=== PATIENT | female | born 1935 | race Caucasian/White ===

== ENCOUNTER 2017-04-29 09:46 | Emergency (ER) | payer BC, MEDICARE ==
[~2017-04-29] VITALS: Ht 170.2 cm; Wt 70.0 kg
[~2017-04-29 09:46] MED LIST: ASPIRIN 81M81 MG/TA2 PO; AZOR 5 MG-40 MG1 TAB PO; COLACE 100100 MG/CAP PO; CORDARONE200 MG/TAB PO; COUMADIN 3MG3 MG/TAB PO; GAS FREE EXTRA125 MG PO; HCTZ 25MG TAB25 MG PO; LIPITOR 40MG TA40 MG PO; LUTEIN20 MG PO; MIRALAX PA17 GM/Dose PO; PREMARIN0.45 MG PO; PROAMATINE2.5 MG PO; TYLENOL ARTHRI650 M1 PO; VITAMIN D31000 I1 PO
[2017-04-29 10:38] LABS: BASO # 0.1 (0.0-0.2); BASO % 0.6 % (0.0-2.0); EOS # 0.3 (0.0-0.7); EOS % 2.2 % (0-4.0); GRAN # 10.6 (1.4-6.5); HEMATOCRIT 41.9 % (37.0-47.0); HEMOGLOBIN 14.1 g/dl (12.5-16.0); LYMPH # 1.5 (1.2-3.4); LYMPH % 11.1 % (20.0-51.0); MEAN CELL VOLUME 84 fl (80.0-100.0); MEAN CORPUSCULAR HEMOGLOBIN 28 pg (27.0-31.0); MEAN CORPUSCULAR HGB CONC 34 g/dl (33.0-37.0); MEAN PLATELET VOLUME 9.5 fl (7.4-10.4); MONO # 0.9 (0.1-0.6); MONO % 6.7 % (1.7-9.3); PLATELET COUNT 254 K/mm3 (130-400); RED BLOOD COUNT 4.99 M/mm3 (4.10-5.30); REDCELL DISTRIBUTION WIDTH-CV 14.2 % (11.5-14.5)
[2017-04-29 10:44] LABS: INR 2.9 (0.8-3.0); PROTHROMBIN TIME 34.2 SECONDS (9.7-12.8)
[2017-04-29 10:56] LABS: ALBUMIN 4.3 gm/dL (3.5-5.0); BILIRUBIN,TOTAL 0.7 mg/dL (0.0-1.0); CALCIUM 9.1 mg/dL (8.4-10.2); CREATININE, serum 0.88 mg/dL (0.52-1.25); POTASSIUM 4.2 mmol/L (3.4-5.0); TOTAL PROTEIN 7.2 gm/dL (6.4-8.2)
[2017-04-29 12:10] VITALS: BP 144/85; PULSE 97
== END 2017-04-29 12:16 | disposition home or self-care (01) ==
LOC: COL.ER 09:46
PROVIDERS: Emergency Medicine
DX: R04.0 Epistaxis (principal); I10 Essential (primary) hypertension; I48.91 Unspecified atrial fibrillation; Z95.2 Presence of prosthetic heart valve; Z79.01 Long term (current) use of anticoagulants; Z79.82 Long term (current) use of aspirin

== ENCOUNTER → 2017-10-15 | Outpatient (CLI) | payer BC, MEDICARE | LOC: COL.VAS 12:50 | DX: R06.02 Shortness of breath (principal); Z95.2 Presence of prosthetic heart valve ==

== ENCOUNTER 2021-08-21 11:09 | Inpatient (IN) | payer MEDICARE, BC ==
[~2021-08-21] VITALS: Ht 167.6 cm; Wt 72.6 kg
[2021-08-21 11:45] LABS: HEMATOCRIT 42.5 % (37.0-47.0); HEMOGLOBIN 14.1 g/dl (12.5-16.0); MEAN CELL VOLUME 81 fl (80.0-100.0); MEAN CORPUSCULAR HEMOGLOBIN 27 pg (27-31); MEAN CORPUSCULAR HGB CONC 33 g/dl (33.0-37.0); PLATELET COUNT 366 K/mm3 (130-400); RED BLOOD COUNT 5.23 M/mm3 (4.10-5.30); REDCELL DISTRIBUTION WIDTH-CV 14.6 % (11.5-14.5)
[2021-08-21 12:02] LABS: BAND 2 % (0-10); LYMPHOCYTE 6 % (20.0-51.0); NEUTROPHILS 83 % (42.0-75.2); PLATELET ESTIMATE NORMAL (NORMAL)
[2021-08-21 12:03] LABS: ALBUMIN 3.1 gm/dL (3.4-4.8); BILIRUBIN,TOTAL 0.8 mg/dL (0.2-1.2); CALCIUM 9.3 mg/dL (8.4-10.2); CREATININE, serum 0.89 mg/dL (0.57-1.11); POTASSIUM 3.3 mmol/L (3.5-4.5); TOTAL PROTEIN 7.2 gm/dL (6.2-8.1)
[2021-08-21 13:31] LABS: COLLECTION METHOD CLEAN CATCH
[2021-08-21 13:39] LABS: MUCOUS Present (NOT PRESENT); PH 5 (5-8); SQUAMOUS EPITHELIAL 20-50 /hpf (0-10); URINE APPEARANCE Cloudy (CLEAR/HAZY); URINE BACTERIA Rare /hpf (NONE SEEN); URINE BILIRUBIN Negative (NEGATIVE); URINE BLOOD 1+ (NEGATIVE); URINE COLOR Amber (YELLOW); URINE GLUCOSE Negative (NEGATIVE); URINE KETONE Trace (NEGATIVE); URINE LEUKOCYTE ESTERASE 3+ (NEGATIVE); URINE NITRATE Negative (NEGATIVE); URINE PROTEIN(semi-quant) 2+ (NEGATIVE); URINE RBC 20-50 /hpf (0-2)
[2021-08-21] MEDS ORDERED: XARELTO20 MG PO (15:22)
[2021-08-21] MEDS ORDERED: NORVASC 5MG5 MG/TAB PO (15:23)
[2021-08-21] MEDS ORDERED: COREG12.5 MG (15:23)
[2021-08-21] MEDS ORDERED: FIBER GUMMIES2.5 GM PO (15:24)
[2021-08-21] MEDS ORDERED: DIAMOX125 MG (15:26)
[2021-08-21 15:40] LABS: COLLECTION METHOD CATHETER
[2021-08-21 15:47] LABS: MUCOUS Present (NOT PRESENT); PH 6 (5-8); URINE APPEARANCE Cloudy (CLEAR/HAZY); URINE BACTERIA None Seen /hpf (NONE SEEN); URINE BILIRUBIN Negative (NEGATIVE); URINE BLOOD 1+ (NEGATIVE); URINE COLOR Yellow (YELLOW); URINE GLUCOSE Negative (NEGATIVE); URINE KETONE Trace (NEGATIVE); URINE LEUKOCYTE ESTERASE 2+ (NEGATIVE); URINE NITRATE Negative (NEGATIVE); URINE PROTEIN(semi-quant) 1+ (NEGATIVE); URINE UROBILINOGEN Negative (NEGATIVE)
[2021-08-21 16:33] VITALS: BP 156/50; PULSE 57; TEMP 98.3
--- NOTE | 2021-08-21 18:29 | NUR ---
PT LAYING SUPINE IN BED ON ROOM AIR. PT STATES SHE IS NOT HAVING ANY SOB BUT DOES HAVE A NONPRODUCTIVE COUGH. PT STATES SHE IS COLD. WARM BLANKET WAS GOTTEN FOR HER. NO OTHER NEEDS WERE VOICED AT THIS TIME. CALL LIGHT IS WITHIN REACH.
[2021-08-21 19:42] VITALS: BP 152/94; PULSE 72; TEMP 100.8
[2021-08-21 23:28] VITALS: BP 125/49; PULSE 60; TEMP 98.6
[2021-08-22] VITALS (8 sets, daily range): BP systolic 126–154; BP diastolic 47–99; PULSE 52–77; TEMP 98–103.2
--- NOTE | 2021-08-22 06:30 | NUR ---
ASSESSMENT COMPLETE FOR THIS SHIFT. PT RESTING IN BED MOANING. PT COMPLAINED OF BODY ACHES AND PT ALSO HAD A LOW GRADE FEVER A COUPLE OF TIMES TONIGHT. PT GIVEN TYLENOL FOR FEVER AND ACHES. PT FELT TYLENOL WAS HELPFUL BOTH TIMES. PT ALSO HAD A NON-PRODUCTIVE COUGH. PT DENIED PALPITATIONS, N,V,D OR DIZZINESS. PT EXPRESSED NO OTHER NEEDS AT THIS TIME. CALL LIGHT WITHIN REACH.
--- NOTE | 2021-08-22 09:03 | NUR ---
Scheduled medications given. Shift assessment preformed. Patient currently requiring 2L of O2 at night. RA during day. IV fluids running as ordered. VSS. Patient A&O. Patient denies any pain, discomfort, SOA, or further needs at this time. Dry, non productive cought noted. Call light in reach. Fall precuations in place.
[2021-08-22 09:51] LABS: BASO # 0.1 K/mm3 (0.0-0.2); BASO % 0.5 % (0.0-2.0); EOS # 0.1 K/mm3 (0.0-0.7); EOS % 0.7 % (0.0-4.0); GRAN # 10.4 K/mm3 (1.4-6.5); GRAN % 84.5 % (42.2-75.2); HEMATOCRIT 37.1 % (37.0-47.0); HEMOGLOBIN 12.7 g/dl (12.5-16.0); LYMPH # 0.9 K/mm3 (1.2-3.4); LYMPH % 7.2 % (20.0-51.0); MEAN CELL VOLUME 80 fl (80.0-100.0); MEAN CORPUSCULAR HEMOGLOBIN 27 pg (27-31); MEAN CORPUSCULAR HGB CONC 34 g/dl (33.0-37.0); MEAN PLATELET VOLUME 8.7 fl (7.4-10.4); MONO # 0.8 K/mm3 (0.1-0.6); MONO % 6.4 % (1.7-9.3); PLATELET COUNT 360 K/mm3 (130-400); RED BLOOD COUNT 4.66 M/mm3 (4.10-5.30); REDCELL DISTRIBUTION WIDTH-CV 14.8 % (11.5-14.5)
[2021-08-22 10:07] LABS: CALCIUM 8.5 mg/dL (8.4-10.2); CREATININE, serum 0.73 mg/dL (0.57-1.11)
[2021-08-22 10:12] LABS: POTASSIUM 2.8 mmol/L (3.5-4.5)
--- NOTE | 2021-08-22 10:36 | NUR ---
Critical potassium reported to Jean Marie who repeated back the results.
--- NOTE | 2021-08-22 12:37 | NUR ---
SW met with the patient to discuss discharge plan. The patient lives in [place] with her , Tio (ph#[phone]). She reports independence with ADLs and has a cane, walker, and electric scooter. She has a CPAP and an oxygen concentrator that hooks up to the CPAP from [facility]. She states that the concentrator is not working, but that she has notified [facility] of this. She states that the equipment is back ordered at this time. The patient's PCP is Dr. Sunil Rod, but she states that she plans on switching to a new PCP and is working on this. She receives her medications from [facility]. The patient does not have a DPOA-HC in EMR, but she states that she does have one competed and believes she designated her daughter, Kendra (ph#[phone]). The patient plans on returning home with her upon discharge. OT is recommending home health. SW discussed this with the patient. The patient states that she would like to get home health set up and would want [facility]. ARJUN contacted and faxed a referral to Ines at [facility]. SW contacted the patient's , Tio, and reviewed the above with him. Tio is in agreement to the plan. ARJUN contacted Gloria at [facility] to inquire if they have a copy of the patient's DPOA-HC. Gloria reports that they do and she will fax it to the medical unit. *Discharge plan: home with and home health*
--- NOTE | 2021-08-22 13:58 | NUR ---
SW received the patient's DPOA-HC, via fax. SW placed the document in the patient's chart. The patient's DPOA-HC is her daughter, Kendra. The alternate is her .
--- NOTE | 2021-08-22 15:16 | NUR ---
PCT INFORMED THIS RN THAT PATIENT HAD A TEMP OF 103.2. PRN TYLENOL GIVEN. ICE PACKS PLACE ON PATIENT'S CORE. TJ TEMPLE NOTIFIED. WILL CONTINUE TO MONITOR.
--- NOTE | 2021-08-22 15:35 | NUR ---
Erich, at [facility], reports that they are able to accept the patient for services.
--- NOTE | 2021-08-22 19:06 | NUR ---
Last temp check came back 98.4 axillary. VSS. Patient A&O. Patient denies any pain, discomfort, SOA, or further needs at this time. Call light in reach.
[2021-08-23] VITALS (7 sets, daily range): BP systolic 124–151; BP diastolic 45–73; PULSE 67–78; TEMP 98–99.3
--- NOTE | 2021-08-23 00:30 | NUR ---
PT REFUSED MIDNIGHT BLADDER SCAN. PT STATES SHE WOULD REALLY LIKE TO JUST GET SOME REST.
--- NOTE | 2021-08-23 05:56 | NUR ---
ASSESSMENT COMPLETE FOR THIS SHIFT. PT RESTING IN BED NAPPING. PT DENIED PAIN, PALPITATIONS, SOB, N,V,D, OR DIZZINESS. PT HAD SOME ISSUES WITH TAKING HER POTASSIUM. PT FELT THE DRINK WAS HARD ON HER STOMACH. THE IV ROUTE WAS NOT PROMISING BECAUSE THE ABX'S SHE WAS TAKING HURT HER VEINS AND THE PILL FORM, SHE WAS ONLY ABLE TO GET HALF A PILL DOWN, BECAUSE IT MADE HER GAG, COUGH AND CHOKE SO BAD, SHE WAS IN TEARS. I TOLD HER, WE WOULD CHECK HER POTASSIUM LEVELS IN THE MORNING, BUT SHE MAY HAVE TO PICK THE LESSER OF THREE EVILS. PT STATED SHE UNDERSTOOD, BUT MADE NO PROMISES. PT'S FELT HER URINE OUTPUT WAS BETTER TONIGHT. WE WERE ABLE TO MEASURE ABOUT 325ML, WITH TWO OF HER TRIPS TO THE RESTROOM RESULTING IN HER URINE OUTPUT NOT BEING ABLE TO BE MEASURED BECAUSE THEY MISSED THE HAT. PT'S URINE WAS YELLOW AND CLEAR. PT REFUSED HER MIDNIGHT AND 0600HRS BLADDER SCANS IN FAVOR OF GETTING MORE REST. HER 2100HRS AND 0300HRS BLADDER SCANS RESULTED IN 89ML AND 158ML RESPECTIVELY. WILL CONTINUE TO MONITOR. PT'S HIGHEST TEMP TONIGHT WAS 99.3. PT EXPRESSED NO OTHER NEEDS AT THIS TIME. CALL LIGHT WITHIN REACH.
[2021-08-23 06:48] LABS: BASO # 0.1 K/mm3 (0.0-0.2); BASO % 0.5 % (0.0-2.0); EOS # 0.2 K/mm3 (0.0-0.7); GRAN # 8.1 K/mm3 (1.4-6.5); GRAN % 73.1 % (42.2-75.2); HEMOGLOBIN 12.2 g/dl (12.5-16.0); LYMPH # 1.2 K/mm3 (1.2-3.4); LYMPH % 10.5 % (20.0-51.0); MEAN CELL VOLUME 79 fl (80.0-100.0); MEAN CORPUSCULAR HEMOGLOBIN 27 pg (27-31); MEAN CORPUSCULAR HGB CONC 34 g/dl (33.0-37.0); MEAN PLATELET VOLUME 8.9 fl (7.4-10.4); MONO # 1.5 K/mm3 (0.1-0.6); MONO % 13.2 % (1.7-9.3); PLATELET COUNT 380 K/mm3 (130-400); RED BLOOD COUNT 4.54 M/mm3 (4.10-5.30); REDCELL DISTRIBUTION WIDTH-CV 14.8 % (11.5-14.5)
[2021-08-23 07:03] LABS: ALBUMIN 2.2 gm/dL (3.4-4.8); BILIRUBIN,TOTAL 0.5 mg/dL (0.2-1.2); CALCIUM 8.5 mg/dL (8.4-10.2); CREATININE, serum 0.63 mg/dL (0.57-1.11); POTASSIUM 3.3 mmol/L (3.5-4.5); TOTAL PROTEIN 5.6 gm/dL (6.2-8.1)
--- NOTE | 2021-08-23 08:42 | NUR ---
PATIENT ALERT AND ORIENTED X3. NO NEW CONCERNS. PATIENT SAYS SHES FEELING BETTER TODAY.
--- NOTE | 2021-08-23 11:45 | NUR ---
Initial visit; Patient and her family thanked [employer] for looking in on Anuja and visiting about mutual friends. Anuja is feeling better and is very thankful. [employer] wished her continued healing and God's blessings.
[2021-08-24 03:03] VITALS: BP 140/75; PULSE 91; TEMP 98.2
--- NOTE | 2021-08-24 05:53 | NUR ---
ASSESSMENT COMPLETE FOR THIS SHIFT. PT SITTING UP IN BED DRINKING SOME WATER. PT DENIED PAIN, PALPITATIONS, N,V,D OR DIZZINESS. PT CONTINUES TO HAVE SOME SOB WITH AMBULATION. PT'S URINE OUTPUT WAS MUCH BETTER TONIGHT. PT'S OUTPUT FOR THIS SHIFT WAS 1750ML. TWO BLADDER SCANS THIS SHIFT SHOWED LESS THAN 350ML. PT REFUSED THE MIDNIGHT AND THE 0630 SCAN COMING UP, IN FAVOR OF GETTING MORE SLEEP. PT EXPRESSED NO OTHER NEEDS AT THIS TIME. CALL LIGHT WITHIN REACH.
[2021-08-24 07:21] VITALS: BP 175/64; PULSE 67; TEMP 98.1
--- NOTE | 2021-08-24 09:09 | NUR ---
PATIENT ALERT AND ORIENTED X3. FEELING BETTER TODAY. HAVING BETTER OUTPUT YESTERDAY AND TODAY. BLADDER SCANS Q6H. NO NEW CONCERNS. TOLERATING IV ANTIBIOTICS WELL.
[2021-08-24 11:29] VITALS: BP 143/55; PULSE 66; TEMP 98.1
[2021-08-24 15:38] VITALS: BP 150/55; PULSE 67; TEMP 98.3
[2021-08-24 15:55] LABS: BASO # 0.1 K/mm3 (0.0-0.2); BASO % 0.9 % (0.0-2.0); EOS # 0.6 K/mm3 (0.0-0.7); EOS % 5.6 % (0.0-4.0); GRAN # 6.8 K/mm3 (1.4-6.5); HEMATOCRIT 41.7 % (37.0-47.0); LYMPH # 1.4 K/mm3 (1.2-3.4); LYMPH % 13.8 % (20.0-51.0); MEAN CELL VOLUME 80 fl (80.0-100.0); MEAN CORPUSCULAR HEMOGLOBIN 27 pg (27-31); MEAN CORPUSCULAR HGB CONC 34 g/dl (33.0-37.0); MEAN PLATELET VOLUME 8.7 fl (7.4-10.4); MONO # 1.4 K/mm3 (0.1-0.6); MONO % 13.1 % (1.7-9.3); PLATELET COUNT 466 K/mm3 (130-400); RED BLOOD COUNT 5.19 M/mm3 (4.10-5.30)
[2021-08-24 16:09] LABS: CALCIUM 8.9 mg/dL (8.4-10.2); CREATININE, serum 0.8 mg/dL (0.57-1.11); POTASSIUM 3.8 mmol/L (3.5-4.5)
--- NOTE | 2021-08-24 19:32 | NUR ---
PATIENT RELAXING WATHCING TV AT THIS TIME CONTINUES WITH IV ABX THERPAY FOR PNEUMONIA/UTI. ENCOURAGING FLUIDS THROUGHOUT SHIFT. NO COUGH NOTED AT THIS TIME EDUATED PATIENT ON TESSALON KIRSTIE MEDICATION. WILL CONTINUE TO ENCOURAGE AMBULATIONG AND DEEP BREATHING EXERCISES WHILE AWAKE. PENDING RESPIRATORY SWAB PANEL. REMAINS ON DROPTLET PRECAUTIONS.
[2021-08-24 20:25] VITALS: BP 128/66; PULSE 93; TEMP 98.6
[2021-08-25] VITALS: BP 132/59; PULSE 82; TEMP 98.2
[2021-08-25 03:42] VITALS: BP 168/57; PULSE 71; TEMP 97.7
--- NOTE | 2021-08-25 06:52 | NUR ---
PATIENT HAVING CONTINOUS COUGH THROUGHOUT THE NIGHT AND VOIDING LARGE AMOUNT OF URINE ON SHIFT. REMAINS ON ABX THERAPY ON 02@ 2L VIA NC PATIENT DOES HAVING C-PAP AT HOME ENCOURAGED PATIENT TO ASKED FAMILY TO BRING IN, SO WE CAN CONTINUE WITH CARE. PATIENT DOES GET LIGHT HEADED WITH AMBULATION SOMETIMES AND SLIGHTLY SOB BUT RECOVERS VERY WELL WIHT RELAXATION.
[2021-08-25 07:39] VITALS: BP 165/65; PULSE 72; TEMP 97.9
--- NOTE | 2021-08-25 07:52 | NUR ---
Assessment completed, alert/oriented, vital signs stable, denies pain, she reports coughing all night long and that the Lupe.pearls did not help at all/ I will discuss POC with physician, lungs diminished but CTA, no resp.difficulty at rest, continue IV Abx, heart RRR/distal pulses are palpable, she is eating breakfast and denies needs
[2021-08-25 11:38] VITALS: BP 147/61; PULSE 73; TEMP 98.1
[2021-08-25 15:29] VITALS: BP 146/50; PULSE 80; TEMP 98
[2021-08-25 19:54] VITALS: BP 177/67; PULSE 105; TEMP 97.4
[2021-08-26] VITALS (7 sets, daily range): BP systolic 146–164; BP diastolic 57–77; PULSE 71–87; TEMP 97.3–98.3
--- NOTE | 2021-08-26 06:25 | NUR ---
ASSESSMENT COMPLETE FOR THIS SHIFT. PT RESTIN IN BED NAPPING. PT DENIED PAIN, PALPITATIONS, SOB, N,V,D OR DIZZINESS. PT DIDN'T WANT THE BLADDER SCANS FOR TONIGHT, IN FAVOR OF GETTING UNINTERRUPTED SLEEP. WILL PASS ON TO DAYSHIFT RN. PT HAD AN OTHERWISE UNEVENTFUL NIGHT. PT EXPRESSED NO OTHER NEEDS AT THIS TIME. CALL LIGHT WITHIN REACH.
[2021-08-26 06:27] LABS: BASO # 0.1 K/mm3 (0.0-0.2); BASO % 0.9 % (0.0-2.0); EOS # 0.6 K/mm3 (0.0-0.7); EOS % 6.3 % (0.0-4.0); GRAN # 6.9 K/mm3 (1.4-6.5); GRAN % 70.4 % (42.2-75.2); HEMATOCRIT 38.4 % (37.0-47.0); HEMOGLOBIN 12.9 g/dl (12.5-16.0); LYMPH # 1.1 K/mm3 (1.2-3.4); LYMPH % 11.1 % (20.0-51.0); MEAN CELL VOLUME 80 fl (80.0-100.0); MEAN CORPUSCULAR HEMOGLOBIN 27 pg (27-31); MEAN CORPUSCULAR HGB CONC 34 g/dl (33.0-37.0); MEAN PLATELET VOLUME 8.6 fl (7.4-10.4); MONO % 10.4 % (1.7-9.3); PLATELET COUNT 537 K/mm3 (130-400); RED BLOOD COUNT 4.81 M/mm3 (4.10-5.30)
[2021-08-26 06:57] LABS: ALBUMIN 2.5 gm/dL (3.4-4.8); CALCIUM 8.8 mg/dL (8.4-10.2); CREATININE, serum 0.7 mg/dL (0.57-1.11); MAGNESIUM 1.8 mg/dL (1.6-2.6); POTASSIUM 3.9 mmol/L (3.5-4.5)
--- NOTE | 2021-08-26 09:49 | NUR ---
PT WORKED WITH PHYSICAL THEARPY. ATE 80 % OF BREAKFAST, UP TO RECLINER TOOK AM MEDS WITHOUT ISSUES. DR. NUÑEZ IN TO SEE PT THIS AM. VSS, ASSESSMENTS COMPLETE. AMBULATES INDEPENDENTLY IN ROOM. IV ABX PER ORDERS RUNNING AT THIS TIME.
--- NOTE | 2021-08-27 02:25 | NUR ---
Pt alert and oriented, resting quietly. Denies pain. CPAP currently on and pt satting WNL. No SOB/dyspnea/diaphoresis. Shift assessment performed. Medications administered per orders and education provided. Continuing on IV antibx overnight. Pt tolerating PO. No significant skin issues noted. Lung sounds diminished. VS stable. Pt on room air during day and CPAP at night. Tele monitor remains on. Rythym NSR. Pt up to void with walker and a standby assist. Pt does not report any questions at this time, will continue to monitor.
[2021-08-27 03:59] VITALS: BP 156/53; PULSE 67; TEMP 97.6
--- NOTE | 2021-08-27 05:19 | NUR ---
No adverse events overnight. Pt remains alert and oriented. CPAP remains on and pt is satting WNL. IV antibx continued overnight per orders. VS stable. Afebrile overnight. Non-productive cough continues. Adeuqte urine output overnight. Tolerating PO. Pt resting currently, does not report any questions. Will continue to monitor.
[2021-08-27 06:21] LABS: BASO # 0.1 K/mm3 (0.0-0.2); BASO % 0.7 % (0.0-2.0); EOS # 0.6 K/mm3 (0.0-0.7); EOS % 6.1 % (0.0-4.0); GRAN # 7.6 K/mm3 (1.4-6.5); GRAN % 72.6 % (42.2-75.2); HEMOGLOBIN 12.1 g/dl (12.5-16.0); LYMPH # 1.2 K/mm3 (1.2-3.4); MEAN CELL VOLUME 80 fl (80.0-100.0); MEAN CORPUSCULAR HEMOGLOBIN 27 pg (27-31); MEAN CORPUSCULAR HGB CONC 33 g/dl (33.0-37.0); MEAN PLATELET VOLUME 8.5 fl (7.4-10.4); MONO # 0.9 K/mm3 (0.1-0.6); MONO % 8.7 % (1.7-9.3); PLATELET COUNT 542 K/mm3 (130-400); RED BLOOD COUNT 4.53 M/mm3 (4.10-5.30); REDCELL DISTRIBUTION WIDTH-CV 15.2 % (11.5-14.5)
[2021-08-27 06:26] LABS: HEMATOCRIT 36.4 % (37.0-47.0)
[2021-08-27 06:35] LABS: ALBUMIN 2.4 gm/dL (3.4-4.8); CALCIUM 8.4 mg/dL (8.4-10.2); CREATININE, serum 0.78 mg/dL (0.57-1.11); MAGNESIUM 1.8 mg/dL (1.6-2.6); PHOSPHOROUS 3.8 mg/dL (2.3-4.7); POTASSIUM 4.2 mmol/L (3.5-4.5)
[2021-08-27 07:39] VITALS: BP 152/67; PULSE 72; TEMP 98.4
[2021-08-27] MEDS ORDERED: DOXYCYCLINE HY100 MG PO (09:45)
--- NOTE | 2021-08-27 10:31 | NUR ---
PT UP TO RECLINER FOR BREAKFAST. PT TO RADIOLOGY FOR BARIUM SWALLOW STUDY. PLAN ON DISCHARGE HOME WITH HOME HEALTH LATER TODAY.
[2021-08-27 11:12] VITALS: BP 134/58; PULSE 73; TEMP 97.7
[2021-08-27] MEDS ORDERED: CEFTIN500 MG PO (11:15)
--- NOTE | 2021-08-27 11:24 | NUR ---
Patient to discharge home later today. Clinical updates and discharge orders faxed to [facility]. Notified Erich with HH agency. Patient presented with the [facility].IM form. education provided and the patient verablized her agreement with the discharge plan of going home today with HH. Patient's signed original palced in the patients chart and copy provided back to the patient. Discharge plan: Home with [facility]
--- NOTE | 2021-08-27 12:55 | NUR ---
DISCHARGE INSTRUCTIONS REVIEWED WITH PT AND FAMILY. QUESTIONS SOLICITED AND ANSWERED. PT LEFT FLOOR WITH FAMILY PER WHEEL CHAIR.
== END 2021-08-27 13:06 | disposition home health service (06) | DRG 871 ==
LOC: COL.ER 11:09 → MEDICAL 14:24
PROVIDERS: Internal Medicine; Physician Assistant; ADMIT Student in an Organized Health Care Education/Training Program
DX: A41.9 Sepsis, unspecified organism (principal); J18.9 Pneumonia, unspecified organism; N39.0 Urinary tract infection, site not specified; I11.0 Hypertensive heart disease with heart failure; I50.9 Heart failure, unspecified; E78.5 Hyperlipidemia, unspecified; E86.0 Dehydration; R33.9 Retention of urine, unspecified; D75.839 Thrombocytosis, unspecified; D72.19 Other eosinophilia; T36.0X5A Adverse effect of penicillins, initial encounter; Z96.653 Presence of artificial knee joint, bilateral; Z20.822 Contact with and (suspected) exposure to COVID-19; Z79.01 Long term (current) use of anticoagulants; Z95.4 Presence of other heart-valve replacement; Z79.4 Long term (current) use of insulin
CPT/HCPCS: 99222-AI; 99232-AI; 99233-AI; 99239; J0456; J0692; J0696; J2543; J7030; J7050

== ENCOUNTER 2021-12-16 10:23 | Emergency (ER) | payer MEDICARE, BC ==
[~2021-12-16] VITALS: Ht 167.6 cm; Wt 71.8 kg
[~2021-12-16 10:23] MED LIST changes: +CEFTIN500 MG PO; +COREG12.5 MG; +DIAMOX125 MG; +DOXYCYCLINE HY100 MG PO; +FIBER GUMMIES2.5 GM PO; +NORVASC 5MG5 MG/TAB PO; +XARELTO20 MG PO
[2021-12-16 10:44] VITALS: TEMP 98.1
[2021-12-16 13:07] VITALS: BP 163/97; PULSE 59
== END 2021-12-16 13:07 | disposition home or self-care (01) ==
LOC: COL.ER 10:23
DX: U07.1 COVID-19 (principal); Z73.0 Burn-out
CPT/HCPCS: J2405; Q0222

== ENCOUNTER 2022-04-24 09:35 | Emergency (ER) | payer MEDICARE, BC ==
[~2022-04-24] VITALS: Ht 167.6 cm; Wt 72.7 kg
[2022-04-24 09:55] VITALS: TEMP 99.5
[2022-04-24 10:15] LABS: BASO # 0.1 K/mm3 (0.0-0.2); BASO % 0.9 % (0.0-2.0); EOS # 0.1 K/mm3 (0.0-0.7); EOS % 1.1 % (0.0-4.0); GRAN # 6.5 K/mm3 (1.4-6.5); GRAN % 76.5 % (42.2-75.2); HEMATOCRIT 42.2 % (37.0-47.0); HEMOGLOBIN 14.3 g/dl (12.5-16.0); LYMPH # 0.7 K/mm3 (1.2-3.4); MEAN CELL VOLUME 83 fl (80.0-100.0); MEAN CORPUSCULAR HEMOGLOBIN 28 pg (27-31); MEAN CORPUSCULAR HGB CONC 34 g/dl (33.0-37.0); MEAN PLATELET VOLUME 9.2 fl (7.4-10.4); MONO # 1.1 K/mm3 (0.1-0.6); MONO % 13.3 % (1.7-9.3); PLATELET COUNT 194 K/mm3 (130-400); RED BLOOD COUNT 5.08 M/mm3 (4.10-5.30); REDCELL DISTRIBUTION WIDTH-CV 13.9 % (11.5-14.5)
[2022-04-24 10:30] LABS: ALANINE AMINOTRANSFERASE 14 U/L (0-55); ALBUMIN 4.1 gm/dL (3.4-4.8); ALKALINE PHOSPHATASE 67 U/L (40-150); ANION GAP 10 mmol/L (7-16); AST,SGOT 22 U/L (5-34); BILIRUBIN,TOTAL 0.9 mg/dL (0.2-1.2); BLOOD UREA NITROGEN 14 mg/dL (10-20); CALCIUM 9.5 mg/dL (8.4-10.2); CARBON DIOXIDE 23 mmol/L (23-31); CHLORIDE 98 mmol/L (98-107); CREATININE, serum 0.91 mg/dL (0.57-1.11); GLUCOSE 105 mg/dL (70-99); POTASSIUM 3.8 mmol/L (3.5-4.5); SODIUM 131 mmol/L (136-145); TOTAL PROTEIN 7.6 gm/dL (6.2-8.1)
[2022-04-24 10:36] LABS: TROPONIN-I < 0.010 ng/mL (0.00-0.033)
[2022-04-24 10:58] LABS: COLLECTION METHOD CLEAN CATCH
[2022-04-24 11:05] LABS: MUCOUS Present (NOT PRESENT); URINE BACTERIA None Seen /hpf (NONE SEEN)
[2022-04-24 11:06] LABS: URINE APPEARANCE Clear (CLEAR/HAZY); URINE BLOOD 1+ (NEGATIVE); URINE COLOR Yellow (YELLOW); URINE GLUCOSE Negative (NEGATIVE); URINE KETONE Negative (NEGATIVE); URINE NITRATE Negative (NEGATIVE); URINE PROTEIN(semi-quant) Negative (NEGATIVE); URINE UROBILINOGEN 0.2 E.U/dL (0.2-1.0)
[2022-04-24] MEDS ORDERED: TESSALON P100 MG/CAP PO (11:10)
[2022-04-24 11:17] VITALS: BP 140/55; PULSE 63
== END 2022-04-24 11:35 | disposition home or self-care (01) ==
LOC: COL.ER 09:35
PROVIDERS: Physician Assistant
DX: J10.1 Influenza due to other identified influenza virus with other respiratory manifestations (principal); I48.91 Unspecified atrial fibrillation; I10 Essential (primary) hypertension; Z79.01 Long term (current) use of anticoagulants; Z95.2 Presence of prosthetic heart valve; Z20.822 Contact with and (suspected) exposure to COVID-19